=== PATIENT | female | born 1985 | race Caucasian/White ===

== ENCOUNTER 2017-08-14 19:06 | Inpatient (IN) | payer OTHER ==
[~2017-08-14] VITALS: Ht 160 cm; Wt 112.5 kg
[2017-08-14] MEDS ORDERED: PRENATAL DHA200 MG PO (19:41)
== END 2017-08-17 18:14 | DRG 774 ==
LOC: LDR 19:06 → OB/GYN 08-15 18:33
PROC: 10E0XZZ Delivery of Products of Conception, External Approach (ICD-10-PCS; principal; 2017-08-15)
PROC: 0UQGXZZ Repair Vagina, External Approach (ICD-10-PCS; 2017-08-15)
PROC: 10907ZC Drainage of Amniotic Fluid, Therapeutic from Products of Conception, Via Natural or Artificial Opening (ICD-10-PCS; 2017-08-15)
PROC: 3E033VJ Introduction of Other Hormone into Peripheral Vein, Percutaneous Approach (ICD-10-PCS; 2017-08-15)
PROC: 4A1HXCZ Monitoring of Products of Conception, Cardiac Rate, External Approach (ICD-10-PCS; 2017-08-15)
DX: O71.4 Obstetric high vaginal laceration alone (principal); O75.3 Other infection during labor; O13.4 Gestational [pregnancy-induced] hypertension without significant proteinuria, complicating childbirth; O99.824 Streptococcus B carrier state complicating childbirth; Z3A.38 38 weeks gestation of pregnancy; Z37.0 Single live birth

== ENCOUNTER 2020-08-17 16:38 | Outpatient (CLI) | payer OTHER ==
[~2020-08-17 16:38] MED LIST: PRENATAL DHA200 MG PO
== END 2020-08-17 22:45 | disposition home or self-care (01) ==
LOC: OBS/DEL 16:38
PROVIDERS: ATTEND Obstetrics & Gynecology
DX: O13.3 Gestational [pregnancy-induced] hypertension without significant proteinuria, third trimester (principal); Z3A.37 37 weeks gestation of pregnancy

== ENCOUNTER 2020-08-24 05:47 | Inpatient (IN) | payer OTHER ==
[~2020-08-24] VITALS: Ht 160 cm; Wt 103.0 kg
[2020-08-24] MEDS ORDERED: PRENATAL VITAM1 EAC3 (08:24)
[2020-08-24] MEDS ORDERED: CEFADROXIL500 MG (08:24)
== END 2020-08-26 18:24 | disposition home or self-care (01) | DRG 807 ==
LOC: OB/GYN 05:47 → LDR 05:47 → OB/GYN 15:00
PROVIDERS: ADMIT Obstetrics & Gynecology; ATTEND Obstetrics & Gynecology
PROC: 10E0XZZ Delivery of Products of Conception, External Approach (ICD-10-PCS; principal; 2020-08-24)
PROC: 4A1HXFZ Monitoring of Products of Conception, Cardiac Rhythm, External Approach (ICD-10-PCS; 2020-08-24)
DX: O42.02 Full-term premature rupture of membranes, onset of labor within 24 hours of rupture (principal); Z37.0 Single live birth; O13.4 Gestational [pregnancy-induced] hypertension without significant proteinuria, complicating childbirth; Z3A.38 38 weeks gestation of pregnancy

== ENCOUNTER 2022-08-31 00:43 | Inpatient (IN) | payer OTHER ==
[~2022-08-31] VITALS: Ht 160 cm; Wt 111.6 kg
[~2022-08-31 00:43] MED LIST changes: +CEFADROXIL500 MG; +PRENATAL VITAM1 EAC3
[2022-08-31] MEDS ORDERED: CHILDREN'S ASPI81 MG PO (01:53)
== END 2022-09-03 13:25 | disposition home or self-care (01) | DRG 788 ==
LOC: LDR 00:43 → OB/GYN 00:43 → O/R 07:14 → OB/GYN 10:45
PROVIDERS: ADMIT Obstetrics & Gynecology; ATTEND Obstetrics & Gynecology
PROC: 10D00Z1 Extraction of Products of Conception, Low, Open Approach (ICD-10-PCS; principal; 2022-08-31)
PROC: 4A1HXCZ Monitoring of Products of Conception, Cardiac Rate, External Approach (ICD-10-PCS; 2022-08-31)
DX: O32.1XX0 Maternal care for breech presentation, not applicable or unspecified (principal); O36.8130 Decreased fetal movements, third trimester, not applicable or unspecified; O36.5930 Maternal care for other known or suspected poor fetal growth, third trimester, not applicable or unspecified; Z3A.37 37 weeks gestation of pregnancy; Z37.0 Single live birth; Z20.822 Contact with and (suspected) exposure to COVID-19